=== PATIENT | male | born 1970 | race Caucasian/White ===

== ENCOUNTER 2019-01-28 09:33 | Inpatient (IN) | payer OTHER ==
[2019-01-28] MEDS: LACTATED RINGER'S 1,000 ML IV (10:58)
[2019-01-28] MEDS: D5W-0.45 NACL + KCL 20 MEQ 1,000 ML IV ×2 (12:17→18:19)
[2019-01-28] MEDS ORDERED: HYDROmorphONE 0.5 MG/0.5 ML SYG IV (12:30)
[2019-01-28] MEDS ORDERED: HYDROCODONE/APAP (10/325) TAB PO (12:30)
[2019-01-28] MEDS ORDERED: DIPHENHYDRAMINE 25 MG CAP PO (12:30)
[2019-01-28] MEDS ORDERED: DIPHENHYDRAMINE 50 MG INJ IV ×2 (12:30→17:00)
[2019-01-28] MEDS: CEFAZOLIN 1 GM/50 ML (PMX) 50 ML IVPB ×2 (12:30→21:28)
[2019-01-28] MEDS ORDERED: BISACODYL 10 MG SUPP PR (12:30)
[2019-01-28] MEDS ORDERED: NALOXONE (0.4 MG/ML) INJ IV (12:30)
[2019-01-28] MEDS ORDERED: MIDAZOLAM 1 MG/ML 2 ML INJ ×2 (12:37→12:45)
[2019-01-28] MEDS: BUPIVACAINE 0.25%/EPI (SDV) 30 ML INJ (13:56)
[2019-01-28] MEDS: POLYMYXIN/BACITRACIN 1L IRRIG (13:57)
[2019-01-28] MEDS: GELATIN SIZE 100 SPONGE (13:57)
[2019-01-28] MEDS: HEPARIN 1000 UNITS/ML 10 ML INJ (13:57)
[2019-01-28] MEDS: CA CHLORIDE 10% 10 ML SYRINGE (13:57)
[2019-01-28] MEDS: THROMBIN 5000 UNIT VIAL ×2 (13:58)
[2019-01-28] MEDS ORDERED: LIDOCAINE 2% (SDV) 5 ML INJ (15:57)
[2019-01-28] MEDS ORDERED: CEFAZOLIN 1 GM INJ (15:57)
[2019-01-28] MEDS ORDERED: ROCURONIUM 50 MG INJ ×3 (15:57)
[2019-01-28] MEDS ORDERED: PROPOFOL 20 ML (15:57)
[2019-01-28] MEDS ORDERED: GLYCOPYRROLATE 0.4 MG INJ (16:01)
[2019-01-28] MEDS ORDERED: NEOSTIGMINE 3 MG/3 ML SYRINGE (16:01)
[2019-01-28] MEDS ORDERED: ONDANSETRON 4 MG INJ (16:01)
[2019-01-28] MEDS ORDERED: HYDROmorphONE 1 MG/5 ML IV SYRINGE IV (16:34)
[2019-01-28] MEDS: HYDROmorphONE 1 MG/5 ML IV SYRINGE IV ×4 (16:48→17:20)
[2019-01-28] MEDS: MEPERIDINE 25 MG INJ IV (16:51)
[2019-01-28] MEDS: ONDANSETRON 4 MG INJ IV ×2 (16:53→23:15)
[2019-01-28] MEDS ORDERED: FENTAnyl 50 MCG/ML VIAL IV (17:00)
[2019-01-28] MEDS ORDERED: MIDAZOLAM 1 MG/ML 2 ML INJ IV (17:00)
[2019-01-28] MEDS ORDERED: LORAZEPAM 2 MG INJ IV (17:00)
[2019-01-28] MEDS ORDERED: METOCLOPRAMIDE 10 MG INJ IV (17:00)
[2019-01-28] MEDS: HYDROmorphONE 0.2 MG/ML PCA IV (17:07)
[2019-01-28] MEDS: CYCLOBENZAPRINE 10 MG TAB PO ×2 (18:18→23:08)
[2019-01-28] MEDS: DOCUSATE SODIUM 100 MG CAP PO (21:28)
[2019-01-28] MEDS: CEPASTAT LOZENGE MT (23:08)
[2019-01-29] MEDS: D5W-0.45 NACL + KCL 20 MEQ 1,000 ML IV ×3 (04:47→21:23)
[2019-01-29] MEDS: CEFAZOLIN 1 GM/50 ML (PMX) 50 ML IVPB ×2 (04:47→11:21)
[2019-01-29 05:14] LABS: ADD MAN DIFF? NO
[2019-01-29 05:17] LABS: WHITE BLOOD COUNT 9.2 10^3/ul (4.8-10.8)
[2019-01-29 05:17] LABS: BASOPHILS % 0.1 % (0.0-2.0); HEMATOCRIT 37.1 % (42.0-52.0); HEMOGLOBIN 12.5 g/dl (14.0-18.0); LYMPHOCYTES # 0.8 10^3/ul (0.8-2.9); LYMPHOCYTES % 8.9 % (15.0-51.0); MEAN CORPUSCULAR HEMOGLOBIN 29.7 pg (29.0-33.0); MEAN CORPUSCULAR HGB CONC 33.7 g/dl (32.0-37.0); MEAN CORPUSCULAR VOLUME 88.1 fl (82.0-101.0); MEAN PLATELET VOLUME 10.7 fl (7.4-10.4); MONOCYTE # 0.8 10^3/ul (0.3-0.9); MONOCYTES % 8.1 % (0.0-11.0); NEUTROPHIL # 7.6 10^3/ul (1.6-7.5); NEUTROPHILS % 82.5 % (39.0-77.0); PLATELET COUNT 159 10^3/UL (140-415); RED BLOOD COUNT 4.21 10^6/ul (4.70-6.10)
[2019-01-29 05:43] LABS: ANION GAP 3 (5-13); BLOOD UREA NITROGEN 9 mg/dl (7-20); CALCIUM 8.2 mg/dl (8.4-10.2); CARBON DIOXIDE 32 mmol/L (21-31); CHLORIDE 102 mmol/L (97-110); Estimated GFR > 60 mL/min (>60); GLUCOSE 117 mg/dl (70-220); MAGNESIUM 1.9 mg/dl (1.7-2.5); SODIUM 137 mmol/L (135-144)
[2019-01-29] MEDS: DOCUSATE SODIUM 100 MG CAP PO ×2 (09:42→20:30)
[2019-01-29 10:50] LABS: ADD UMIC YES; UR ASCORBIC ACID NEGATIVE (NEGATIVE); UR BILIRUBIN (Dip) NEGATIVE (NEGATIVE); UR BLOOD (Dip) 1+ mg/dL (NEGATIVE); UR CLARITY SLIGHTLY CLOUDY (CLEAR); UR COLOR YELLOW (YELLOW); UR GLUCOSE (Dip) NEGATIVE (NEGATIVE); UR KETONES (Dip) NEGATIVE (NEGATIVE); UR LEUKOCYTE ESTERASE (Dip) 2+ Leu/ul (NEGATIVE); UR NITRITE (Dip) NEGATIVE (NEGATIVE); UR RBC 10 /HPF (0-5); UR SPECIFIC GRAVITY (Dip) 1.017 (1.003-1.030); UR TOTAL PROTEIN (Dip) NEGATIVE (NEGATIVE); UR UROBILINOGEN (Dip) NEGATIVE (NEGATIVE); UR WBC 8 /HPF (0-5)
[2019-01-29] MEDS: LACTATED RINGER'S 1,000 ML IV (11:00)
[2019-01-29] MEDS: HYDROmorphONE 0.2 MG/ML PCA IV (11:21)
[2019-01-29] MEDS: ACETAMINOPHEN 325 MG TAB PO (21:23)
[2019-01-29] MEDS: LORAZEPAM 0.5 MG TAB PO (23:28)
[2019-01-30] MEDS: HYDROmorphONE 0.2 MG/ML PCA IV (01:43)
[2019-01-30] MEDS: D5W-0.45 NACL + KCL 20 MEQ 1,000 ML IV ×3 (04:17→23:12)
[2019-01-30 05:19] LABS: ADD MAN DIFF? NO
[2019-01-30 05:24] LABS: WHITE BLOOD COUNT 9.1 10^3/ul (4.8-10.8)
[2019-01-30 05:24] LABS: BASOPHILS % 0.2 % (0.0-2.0); HEMATOCRIT 38.5 % (42.0-52.0); LYMPHOCYTES # 1.3 10^3/ul (0.8-2.9); LYMPHOCYTES % 14.2 % (15.0-51.0); MEAN CORPUSCULAR HEMOGLOBIN 30.2 pg (29.0-33.0); MEAN CORPUSCULAR HGB CONC 33.8 g/dl (32.0-37.0); MEAN CORPUSCULAR VOLUME 89.5 fl (82.0-101.0); MEAN PLATELET VOLUME 10.7 fl (7.4-10.4); MONOCYTES % 11.1 % (0.0-11.0); NEUTROPHIL # 6.7 10^3/ul (1.6-7.5); NEUTROPHILS % 74.1 % (39.0-77.0); PLATELET COUNT 143 10^3/UL (140-415)
[2019-01-30 05:50] LABS: PHOSPHORUS 3.1 mg/dl (2.5-4.9)
[2019-01-30 05:57] LABS: ANION GAP 6 (5-13); BLOOD UREA NITROGEN 6 mg/dl (7-20); CALCIUM 8.6 mg/dl (8.4-10.2); CARBON DIOXIDE 33 mmol/L (21-31); CHLORIDE 99 mmol/L (97-110); CREATININE 0.64 mg/dl (0.61-1.24); Estimated GFR > 60 mL/min (>60); GLUCOSE 121 mg/dl (70-220); POTASSIUM 4.1 mmol/L (3.5-5.1); SODIUM 138 mmol/L (135-144)
[2019-01-30] MEDS: DOCUSATE SODIUM 100 MG CAP PO ×2 (08:40→20:33)
[2019-01-30] MEDS: AL HYDROX/MG HYDROX/SIMETH 30 ML CUP PO (08:40)
[2019-01-30] MEDS: LACTATED RINGER'S 1,000 ML IV (11:00)
[2019-01-30] MEDS: HYDROCODONE/APAP (10/325) TAB PO ×2 (12:57→20:32)
[2019-01-30] MEDS: LORAZEPAM 0.5 MG TAB PO ×2 (13:01→23:12)
[2019-01-30] MEDS: CIPROFLOXACIN 500 MG TAB PO (18:18)
[2019-01-31] MEDS: HYDROCODONE/APAP (10/325) TAB PO ×5 (04:31→20:58)
[2019-01-31 05:09] LABS: ADD MAN DIFF? NO
[2019-01-31 05:13] LABS: WHITE BLOOD COUNT 7.5 10^3/ul (4.8-10.8)
[2019-01-31 05:13] LABS: BASOPHILS % 0.3 % (0.0-2.0); EOSINOPHILS # 0.1 10^3/ul (0.0-0.5); EOSINOPHILS % 1.3 % (0.0-7.0); HEMATOCRIT 37.3 % (42.0-52.0); HEMOGLOBIN 12.9 g/dl (14.0-18.0); LYMPHOCYTES # 1.9 10^3/ul (0.8-2.9); MEAN CORPUSCULAR HEMOGLOBIN 30.1 pg (29.0-33.0); MEAN CORPUSCULAR HGB CONC 34.6 g/dl (32.0-37.0); MEAN CORPUSCULAR VOLUME 87.1 fl (82.0-101.0); MEAN PLATELET VOLUME 10.5 fl (7.4-10.4); MONOCYTE # 0.8 10^3/ul (0.3-0.9); MONOCYTES % 10.6 % (0.0-11.0); NEUTROPHIL # 4.7 10^3/ul (1.6-7.5); NEUTROPHILS % 62.4 % (39.0-77.0); PLATELET COUNT 153 10^3/UL (140-415); RED BLOOD COUNT 4.28 10^6/ul (4.70-6.10); RED CELL DISTRIBUTION WIDTH 12.9 % (11.5-14.5)
[2019-01-31 05:36] LABS: ANION GAP 5 (5-13); BLOOD UREA NITROGEN 7 mg/dl (7-20); CALCIUM 8.8 mg/dl (8.4-10.2); CARBON DIOXIDE 36 mmol/L (21-31); CHLORIDE 99 mmol/L (97-110); CREATININE 0.62 mg/dl (0.61-1.24); Estimated GFR > 60 mL/min (>60); GLUCOSE 116 mg/dl (70-220); MAGNESIUM 2.1 mg/dl (1.7-2.5); SODIUM 140 mmol/L (135-144)
[2019-01-31 05:36] LABS: PHOSPHORUS 2.5 mg/dl (2.5-4.9)
[2019-01-31 05:39] LABS: POTASSIUM 3.9 mmol/L (3.5-5.1)
[2019-01-31] MEDS: CIPROFLOXACIN 500 MG TAB PO (05:57)
[2019-01-31] MEDS: DOCUSATE SODIUM 100 MG CAP PO ×2 (08:52→20:58)
[2019-01-31] MEDS: LORAZEPAM 0.5 MG TAB PO (08:52)
== END 2019-01-31 22:08 | DRG 455 ==
LOC: REC 09:33 → VRC 01-31 21:20 → MS1 17:30
PROVIDERS: Specialist
PROC: 0SG30AJ Fusion of Lumbosacral Joint with Interbody Fusion Device, Posterior Approach, Anterior Column, Open Approach (ICD-10-PCS; principal; 2019-01-28 12:00)
PROC: 0SG30K1 Fusion of Lumbosacral Joint with Nonautologous Tissue Substitute, Posterior Approach, Posterior Column, Open Approach (ICD-10-PCS; 2019-01-28 12:00)
PROC: 0ST40ZZ Resection of Lumbosacral Disc, Open Approach (ICD-10-PCS; 2019-01-28 12:00)
PROC: 4A11X4G Monitoring of Peripheral Nervous Electrical Activity, Intraoperative, External Approach (ICD-10-PCS; 2019-01-28 12:00)
DX: M43.17 Spondylolisthesis, lumbosacral region (principal); M48.07 Spinal stenosis, lumbosacral region; M54.17 Radiculopathy, lumbosacral region; F41.9 Anxiety disorder, unspecified; R50.9 Fever, unspecified; R05 Cough
CPT/HCPCS: 71045; 72110; 80048; 81001; 83735; 84100; 85025; 86999; 87040-91; 87086; 88304; 97116; 97161; 97530

== ENCOUNTER 2019-01-31 21:45 | Inpatient (IN) | payer OTHER ==
[2019-01-31] MEDS ORDERED: ACETAMINOPHEN 325 MG TAB PO ×2 (23:00→23:30)
[2019-01-31] MEDS ORDERED: CYCLOBENZAPRINE 10 MG TAB PO (23:30)
[2019-01-31] MEDS ORDERED: AL HYDROX/MG HYDROX/SIMETH 30 ML CUP PO (23:30)
[2019-01-31] MEDS ORDERED: DIPHENHYDRAMINE 25 MG CAP PO (23:30)
[2019-01-31] MEDS ORDERED: CEPASTAT LOZENGE MT (23:30)
[2019-01-31] MEDS: LORAZEPAM 0.5 MG TAB PO (23:40)
[2019-02-01] MEDS: HYDROCODONE/APAP (10/325) TAB PO ×4 (01:05→19:48)
[2019-02-01 02:56] LABS: ADD UMIC NO; UR ASCORBIC ACID NEGATIVE (NEGATIVE); UR BILIRUBIN (Dip) NEGATIVE (NEGATIVE); UR BLOOD (Dip) NEGATIVE (NEGATIVE); UR CLARITY CLEAR (CLEAR); UR COLOR STRAW (YELLOW); UR GLUCOSE (Dip) NEGATIVE (NEGATIVE); UR KETONES (Dip) TRACE mg/dL (NEGATIVE); UR LEUKOCYTE ESTERASE (Dip) NEGATIVE Leu/ul (NEGATIVE); UR NITRITE (Dip) NEGATIVE (NEGATIVE); UR SPECIFIC GRAVITY (Dip) 1.004 (1.003-1.030); UR TOTAL PROTEIN (Dip) NEGATIVE (NEGATIVE); UR UROBILINOGEN (Dip) NEGATIVE (NEGATIVE)
[2019-02-01 07:50] LABS: ADD MAN DIFF? NO
[2019-02-01 07:53] LABS: WHITE BLOOD COUNT 5.7 10^3/ul (4.8-10.8)
[2019-02-01 07:53] LABS: BASOPHILS % 0.5 % (0.0-2.0); EOSINOPHILS # 0.1 10^3/ul (0.0-0.5); EOSINOPHILS % 2.5 % (0.0-7.0); HEMOGLOBIN 12.6 g/dl (14.0-18.0); LYMPHOCYTES # 1.7 10^3/ul (0.8-2.9); MEAN CORPUSCULAR HEMOGLOBIN 30.1 pg (29.0-33.0); MEAN CORPUSCULAR VOLUME 86.1 fl (82.0-101.0); MEAN PLATELET VOLUME 10.2 fl (7.4-10.4); MONOCYTE # 0.5 10^3/ul (0.3-0.9); MONOCYTES % 8.5 % (0.0-11.0); NEUTROPHIL # 3.4 10^3/ul (1.6-7.5); NEUTROPHILS % 59.1 % (39.0-77.0); PLATELET COUNT 171 10^3/UL (140-415); RED BLOOD COUNT 4.18 10^6/ul (4.70-6.10); RED CELL DISTRIBUTION WIDTH 12.7 % (11.5-14.5)
[2019-02-01 08:19] LABS: ALANINE AMINOTRANSFERASE 20 IU/L (13-69); ALBUMIN 3.4 g/dl (3.3-4.9); ALBUMIN/GLOBULIN RATIO 1.41; ALKALINE PHOSPHATASE 46 IU/L (42-121); ANION GAP 5 (5-13); ASPARTATE AMINO TRANSFERASE 17 IU/L (15-46); BILIRUBIN,INDIRECT 0.7 mg/dl (0-1.1); BILIRUBIN,TOTAL 0.7 mg/dl (0.2-1.3); BLOOD UREA NITROGEN 7 mg/dl (7-20); CALCIUM 8.8 mg/dl (8.4-10.2); CARBON DIOXIDE 35 mmol/L (21-31); CHLORIDE 98 mmol/L (97-110); CREATININE 0.66 mg/dl (0.61-1.24); Estimated GFR > 60 mL/min (>60); GLUCOSE 103 mg/dl (70-220); POTASSIUM 3.3 mmol/L (3.5-5.1); SODIUM 138 mmol/L (135-144); TOTAL PROTEIN 5.8 g/dl (6.1-8.1)
[2019-02-01] MEDS: POTASSIUM CHLORIDE (SR) 10 MEQ TAB PO (09:33)
[2019-02-01] MEDS: DOCUSATE SODIUM 100 MG CAP PO ×2 (09:33→20:42)
[2019-02-01] MEDS: LORAZEPAM 0.5 MG TAB PO ×3 (09:33→20:42)
[2019-02-01] MEDS: MAGNESIUM HYDROXIDE 30ML CUP PO (12:45)
[2019-02-01] MEDS: LACTULOSE 30ML CUP PO (18:42)
[2019-02-01] MEDS: SENNA TAB PO (20:42)
[2019-02-01] MEDS: BACLOFEN 10 MG TAB PO (20:44)
[2019-02-02] MEDS: HYDROCODONE/APAP (10/325) TAB PO ×4 (00:53→20:21)
[2019-02-02] MEDS: LORAZEPAM 0.5 MG TAB PO ×4 (09:00→20:22)
[2019-02-02 09:25] LABS: ADD MAN DIFF? NO
[2019-02-02] MEDS: DOCUSATE SODIUM 100 MG CAP PO ×2 (09:27→20:22)
[2019-02-02] MEDS: LACTULOSE 30ML CUP PO (09:27)
[2019-02-02] MEDS: BACLOFEN 10 MG TAB PO ×2 (09:27→20:22)
[2019-02-02 09:28] LABS: WHITE BLOOD COUNT 5.7 10^3/ul (4.8-10.8)
[2019-02-02 09:28] LABS: BASOPHILS % 0.7 % (0.0-2.0); EOSINOPHILS # 0.1 10^3/ul (0.0-0.5); EOSINOPHILS % 1.6 % (0.0-7.0); HEMATOCRIT 41.8 % (42.0-52.0); HEMOGLOBIN 14.6 g/dl (14.0-18.0); LYMPHOCYTES # 1.7 10^3/ul (0.8-2.9); LYMPHOCYTES % 30.1 % (15.0-51.0); MEAN CORPUSCULAR HEMOGLOBIN 29.9 pg (29.0-33.0); MEAN CORPUSCULAR HGB CONC 34.9 g/dl (32.0-37.0); MEAN CORPUSCULAR VOLUME 85.5 fl (82.0-101.0); MEAN PLATELET VOLUME 10.1 fl (7.4-10.4); MONOCYTE # 0.5 10^3/ul (0.3-0.9); MONOCYTES % 9.3 % (0.0-11.0); NEUTROPHIL # 3.3 10^3/ul (1.6-7.5); NEUTROPHILS % 58.1 % (39.0-77.0); PLATELET COUNT 255 10^3/UL (140-415); RED BLOOD COUNT 4.89 10^6/ul (4.70-6.10)
[2019-02-02 09:51] LABS: ANION GAP 8 (5-13); BLOOD UREA NITROGEN 9 mg/dl (7-20); CALCIUM 9.3 mg/dl (8.4-10.2); CARBON DIOXIDE 34 mmol/L (21-31); CHLORIDE 95 mmol/L (97-110); Estimated GFR > 60 mL/min (>60); GLUCOSE 107 mg/dl (70-220); MAGNESIUM 2.3 mg/dl (1.7-2.5); PHOSPHORUS 3.7 mg/dl (2.5-4.9); POTASSIUM 4.2 mmol/L (3.5-5.1); SODIUM 137 mmol/L (135-144)
[2019-02-02] MEDS: SENNA TAB PO (20:22)
[2019-02-03] MEDS: HYDROCODONE/APAP (10/325) TAB PO ×4 (03:26→20:53)
[2019-02-03] MEDS: LORAZEPAM 0.5 MG TAB PO ×3 (09:00→21:46)
[2019-02-03] MEDS: BACLOFEN 10 MG TAB PO ×2 (10:28→20:53)
[2019-02-03] MEDS: DOCUSATE SODIUM 100 MG CAP PO ×2 (10:28→20:55)
[2019-02-03] MEDS: BISACODYL 10 MG SUPP PR (20:54)
[2019-02-03] MEDS: SENNA TAB PO (20:55)
[2019-02-04] MEDS: HYDROCODONE/APAP (10/325) TAB PO ×4 (01:37→19:48)
[2019-02-04] MEDS: LORAZEPAM 0.5 MG TAB PO ×3 (09:00→20:49)
[2019-02-04] MEDS: BACLOFEN 10 MG TAB PO ×2 (09:24→20:49)
[2019-02-04] MEDS: DOCUSATE SODIUM 100 MG CAP PO ×2 (09:24→20:49)
[2019-02-04] MEDS: SENNA TAB PO (20:49)
[2019-02-05] MEDS: HYDROCODONE/APAP (10/325) TAB PO ×3 (01:23→13:29)
[2019-02-05] MEDS: LORAZEPAM 0.5 MG TAB PO (01:23)
[2019-02-05] MEDS: DOCUSATE SODIUM 100 MG CAP PO (08:07)
[2019-02-05] MEDS: BACLOFEN 10 MG TAB PO (08:07)
[2019-02-05] MEDS ORDERED: LORAZEPAM 0.5 MG TAB PO (21:00)
== END 2019-02-05 16:15 | disposition home health service (06) | DRG 561 ==
LOC: VRC 21:45
DX: Z47.89 Encounter for other orthopedic aftercare (principal); G89.18 Other acute postprocedural pain; F41.9 Anxiety disorder, unspecified; Z98.890 Other specified postprocedural states; K59.00 Constipation, unspecified; Z74.09 Other reduced mobility
CPT/HCPCS: 80048; 80053; 81003; 83735; 84100; 85025; 87081; 87086; 97110; 97112; 97116; 97163; 97165; 97530; 97535